=== PATIENT | male | born 1980 | race Caucasian/White ===

== ENCOUNTER 2020-11-10 08:32 | Day surgery (SDC) | payer OTHER ==
[~2020-11-10] VITALS: Ht 182.9 cm; Wt 115.7 kg
[~2020-11-10 08:32] MED LIST: AMOCLA875 PO; CODACE30 PO; LORA10ER PO; RXCLIN PO; RXCODACET PO
--- NOTE | 2020-11-10 10:04 | NUR ---
History, Chart, Medications and Allergies reviewed before start of procedure.Ambulatory in Day Surgery Patient states colon prep results clear. Lungs clear T/O to Auscultation. Patient confirms NPO status and agrees with scheduled surgery. Pre-Op teaching done. Pt verbalizes understanding.
--- NOTE | 2020-11-10 11:37 | NUR ---
Patient up to Ambulate independently. Gait steady. Discharge instructions reviewed with patient. Patient verbalizes understanding. Copy given to patient to take home. Patient States Post-Procedure ride home has been arranged. Discharged via wheelchair to private car for ride home.
--- NOTE | 2020-11-11 09:54 | NUR ---
11/11/20 0954 TribuneMarcelo schwaby PATIENT DETERMINED TO BE ASA APPROPRIATE FOR PROPOFOL SEDATION PRIOR TO START OF PROCEDURE BY DR. LUNDY. 3-LEAD EKG REVIEWED WITH PHYSICIAN PRIOR TO START OF PROCEDURE. Patient to ENDO 1. History, Chart, Medications and Allergies reviewed before start of procedure. MONITOR INTACT WITH CONTINUOUS PULSE OXIMETRY AND INTERMITTENT BP. O2 VIA N/C INTACT THROUGHOUT SEDATION/PROCEDURE.
== END 2020-11-10 22:52 | disposition home or self-care (01) ==
LOC: ORSCMMR 08:32 → ORD 09:30 → ORSCMMR 22:52
PROVIDERS: Internal Medicine Gastroenterology
PROC: 0DJD8ZZ Inspection of Lower Intestinal Tract, Via Natural or Artificial Opening Endoscopic (ICD-10-PCS; principal; 2020-11-10 09:30)
DX: K62.5 Hemorrhage of anus and rectum (principal); K57.30 Diverticulosis of large intestine without perforation or abscess without bleeding; K76.0 Fatty (change of) liver, not elsewhere classified
CPT/HCPCS: J2250; J2704; J7120

== ENCOUNTER → 2021-06-02 | Outpatient (CLI) | payer OTHER | LOC: LAB 11:53 → LAB SHORT 11:53 | DX: L03.317 Cellulitis of buttock (principal) | CPT/HCPCS: 87070; 87076; 87205 ==